=== PATIENT | female | born 1950 | race Caucasian/White ===

== ENCOUNTER 2017-10-22 07:36 | Observation (INO) ==
[2017-10-22 08:26] LABS: Hematocrit 36.5 % (37.0-47.0); Hemoglobin 11.7 gm/dL (12.5-16.0); Mean Cell Volume 97.6 fl (78-100); Mean Corpuscular Hemoglobin 31.3 pg (27-31); Mean Corpuscular Hgb Conc 32.1 g/dl (32-36); Mean Platelet Volume 9.3 fl (8-12.5); Neutrophil # 10.2 K/mm3 (1.3-6.0); Neutrophil % 83.1 % (42-75.0); Platelet Count 323 K/mm3 (150-450); Red Blood Count 3.74 M/mm3 (4.2-5.4); Red Cell Distribution Width 13.2 % (11.5-14.0); White Blood Count 12.3 K/mm3 (4.0-10.5)
[2017-10-22 08:29] LABS: Albumin * 3.7 gm/dl (3.4-5.0); Anion Gap 9.5 mmol/L (6.8-13.8); BUN/Creatinine Ratio 17.5 (9.0-21.6); Bilirubin, Total 0.6 mg/dL (0.0-1.1); Ca. Corrected For Albumin 9.5 mg/dL (8.4-10.2); Calcium * 9.6 mg/dL (7.9-10.9); Carbon Dioxide 35.7 mmol/L (24-32.6); Potassium 4.2 mmol/L (3.4-4.6)
[2017-10-22 08:53] LABS: Urine Appearance Clear (CLEAR); Urine Bacteria None Seen; Urine Bilirubin Negative (NEGATIVE); Urine Blood Negative /ul (NEGATIVE); Urine Color Yellow; Urine Ketone Negative (NEGATIVE); Urine Nitrite Negative (NEGATIVE); Urine Protein 15 mg/dL (NEGATIVE); Urine RBC TRACE /hpf (0-5); Urine Urobilinogen Normal (NORMAL); Urine WBC TRACE /hpf (0-5); Urine pH 8.5 pH (5.0-7.0)
[2017-10-22] MEDS ORDERED: DIATRIZOATE MEGLUMINE, SODIUM 30 ML BTL PO ONE (09:06)
[2017-10-22] MEDS ORDERED: ONDANSETRON HCL/PF 2 MG/ML VIAL IV ONE (09:06)
[2017-10-22] MEDS ORDERED: PANTOPRAZOLE SODIUM 40 MG in NORMAL SALINE 100 ML IV ONE (09:08)
[2017-10-22] MEDS ORDERED: ONDANSETRON HCL/PF 2 MG/ML VIAL ONE (09:13)
[2017-10-22] MEDS ORDERED: PANTOPRAZOLE SODIUM 40 MG/100 ML PIGGYBACK IV ONE (09:13)
[2017-10-22] MEDS ORDERED: MORPHINE SULFATE 2 MG/ML DISP.SYRIN ONE ×2 (09:29→10:37)
[2017-10-22] MEDS ORDERED: MORPHINE SULFATE 2 MG/ML DISP.SYRIN IV ONE ×2 (09:29→10:36)
[2017-10-22] MEDS ORDERED: DIATRIZOATE MEGLUMINE, SODIUM 30 ML BTL ONE (09:33)
[2017-10-22] MEDS ORDERED: NORMAL SALINE 1,000 ML IV ONE (14:58)
[2017-10-22] MEDS ORDERED: PIPERACILLIN SODIUM/TAZOBACTAM 3.375 GM in DEXTROSE 5 % IN WATER 100 ML IV ONE ×2 (15:18)
--- NOTE | 2017-10-22 15:21 | ERNOTE ---
Abdominal HPI - Narrative Date of Service: 10/22/17 - General Chief Complaint: Abdominal Pain Time Seen by Provider: 10/22/17 08:19 Source: patient Exam Limitations: no limitations - Immun/Allergies/Home Medications Immunizatons: IMMUNIZATION HX Immunizations Up to Date Yes History of Influenza Vaccine Yes Hx Pneumococcal Vaccination No Allergies/Adverse Reactions: Allergies No Known Allergies Allergy (Verified 10/22/17 07:53) Home Medications: HOME MEDICATIONS Carvedilol [Coreg] 3.125 mg PO BID #60 tablet 02/02/13 [Last Taken Unknown] Levalbuterol HCl [Xopenex] 1.25 mg IH QID #120 02/02/13 [Last Taken Unknown] Lisinopril 20 mg PO DAILY #30 tablet 02/02/13 [Last Taken Unknown] Arformoterol Tartrate [Brovana] 15 mcg IH BID 02/08/14 [Last Taken Unknown] Furosemide [Lasix] 40 mg PO DAILY 02/08/14 [Last Taken Unknown] Tiotropium [place] [Spiriva] 1 cap IH DAILY 04/21/17 [Last Taken Unknown] - History of Present Illness Narrative: Patient presents to the ED with upper abdominal pain since friday. Sharp and aching. More left sided and epigastric but will be on the right side at times. No low abdominal pain. No history of pains like this. Pain can be severe, waxing and waning, mild right now. no CP or acute SOB. Nausea with vomiting. No dysuria. Has not sen anyone else for this. No increased SOB, on home O2. Timing: constant, other - fluctuating intensity Quality: other - sharp Activities at Onset: none Modifying Factors - (Improves): Present: other - nothing Modifying Factors - (Worsens): Present: other - nothing Associated Symptoms: Present: nausea, vomiting. Absent: chest pain, diarrhea- mucous, fever/chills, syncope Prior Abdominal Problems: Absent: similar symptoms Prior Treatment: Absent: recently seen Review of Systems - Review of Systems Constitutional: Absent: fever Respiratory: Absent: stridor Cardiology: Absent: chest pain Gastrointestinal/Abdominal: Present: abdominal pain Genitourinary: Absent: dysuria Skin: Absent: rash Neurological: Absent: weakness All Other Systems: All systems neg except as marked Medical History (Last Updated 10/22/17 @ 07:51 by Anibal Arrington RN) CHF (congestive heart failure) COPD (chronic obstructive pulmonary disease) Hypertension Skin cancer Surgical History: Surgical History (Last Updated 10/22/17 @ 07:53 by Anibal Arrington RN) History of ear surgery Social History: Preferred Language Romanian Smoking Status Former smoker Abuse History No History of abuse Psych History No pertinent hx Alcohol Use none Drug Use none Physical Exam - Physical Exam General Appearance: Present: alert, no apparent distress Head Exam: Present: normal inspection, no evidence of injury Eye Exam: Normal inspection: bilateral, PERRL: bilateral Ears, Nose, Throat: Present: normal ENT inspection Neck: Present: normal inspection Respiratory: Present: no respiratory distress, no accessory muscle use, lungs clear Cardiovascular/Chest: Present: regular rate, rhythm, normal peripheral pulses Gastrointestinal/Abdominal: Present: nondistended, soft, no organomegaly, other - diffuse upper abdominal tenderness Back Exam: Absent: CVA tenderness (R), CVA tenderness (L) Extremity Exam: Present: normal range of motion Neurological Exam: Present: alert, no motor/sensory deficits Skin Exam: Present: normal color, warm/dry ED Progress - Results and Orders Patient's Lab Results:: I have reviewed the patient's lab results. - Vital Signs Patient's Vital Signs:: I have reviewed the patient's vital signs. Vital Signs: Vital Signs 10/22/17 07:37 10/22/17 08:44 10/22/17 09:24 Temperature 36.8 C Pulse Rate 82 88 79 Respiratory Rate 18 16 16 Blood Pressure 172/58 H 183/70 H 165/65 H O2 Sat by Pulse Oximetry 92 L 91 L 98 10/22/17 09:39 10/22/17 10:18 10/22/17 10:41 Temperature Pulse Rate 78 76 79 Respiratory Rate 15 18 18 Blood Pressure 161/61 H 162/99 H 165/64 H O2 Sat by Pulse Oximetry 98 97 100 10/22/17 11:31 10/22/17 11:46 10/22/17 13:30 Temperature Pulse Rate 77 74 86 Respiratory Rate 16 16 18 Blood Pressure 156/62 H 159/64 H 165/58 H O2 Sat by Pulse Oximetry 92 L 100 100 10/22/17 14:05 10/22/17 14:20 Temperature Pulse Rate 76 76 Respiratory Rate Blood Pressure 141/59 150/60 H O2 Sat by Pulse Oximetry 98 97 - EKG EKG: NSR EKG read: Interp. by me EKG Comments: NSR rate 76. Non-specific, no STEMI - X-Ray X-Ray #1 X-Ray: abdomen Interpretation: Interp. by me X-ray Comments: I reviewed official radiology report - CT/Ultrasound CT/Ultrasound Narrative: I reviewed official radiology reports for CT scan and US. - Progress/Reassessment Chief Complaint: Abdominal Pain Progress Note-Subjective: 10/22/17 15:20 patient given anti-emetics and narcotics. D/W Dr Souza who saw the patient in the ED in surgical consultation. 10/22/17 15:54 Patient will be taken to the OR here. Departure Clinical Impression: Abdominal pain, Cholecystitis - Departure Disposition: Still a patient Condition: Stable Referrals: Isael Vallejo DO [Primary Care Provider] -
--- NOTE | 2017-10-22 16:03 | ERNOTE ---
Abdominal HPI - Narrative Date of Service: 10/22/17 - General Chief Complaint: Abdominal Pain Time Seen by Provider: 10/22/17 08:19 Source: patient Exam Limitations: no limitations - Immun/Allergies/Home Medications Immunizatons: IMMUNIZATION HX Immunizations Up to Date Yes History of Influenza Vaccine Yes Hx Pneumococcal Vaccination No Allergies/Adverse Reactions: Allergies No Known Allergies Allergy (Verified 10/22/17 07:53) Home Medications: HOME MEDICATIONS Carvedilol [Coreg] 3.125 mg PO BID #60 tablet 02/02/13 [Last Taken Unknown] Levalbuterol HCl [Xopenex] 1.25 mg IH QID #120 02/02/13 [Last Taken Unknown] Lisinopril 20 mg PO DAILY #30 tablet 02/02/13 [Last Taken Unknown] Arformoterol Tartrate [Brovana] 15 mcg IH BID 02/08/14 [Last Taken Unknown] Furosemide [Lasix] 40 mg PO DAILY 02/08/14 [Last Taken Unknown] Tiotropium [place] [Spiriva] 1 cap IH DAILY 04/21/17 [Last Taken Unknown] - History of Present Illness Narrative: Alison is a very pleasant 67-year-old female who developed abdominal pain on Friday. She has a significant history of COPD, she is on 2 L of oxygen all the time. Recently her lungs have been doing well, and she denies any acute COPD exacerbation. She is able to walk from the parking lot into the grocery store, she can then walk around the grocery store, if she leans on the cart. She has not had anything to eat since Friday. She has not had abdominal pain like this before. Her bowels have been working normally. She has had some dry heaves, otherwise denies emesis. Complains of nausea when she does try to eat. She is uncertain where the pain is worse, except with palpation of the abdomen she describes it is definitely being worse in the right upper quadrant. Her son is with her at the bedside in the emergency room. She underwent a CT scan which showed possible acute cholecystitis. She then had an ultrasound which showed cholelithiasis demonstrating probable cholecystitis, there is a nonmobile stone within the neck of the gallbladder get a sonographic Rincon's, proximal common bile duct is 0.27 and the distal common bile duct is 0.45. There is pericholecystic fluid, there is a thickened wall. Timing: getting worse Quality: severe Modifying Factors - (Improves): Present: analgesics Modifying Factors - (Worsens): Present: eating Associated Symptoms: Present: nausea, loss of appetite. Absent: chest pain Prior Abdominal Problems: Present: none Review of Systems - Review of Systems Constitutional: Present: weakness EYE: Present: no symptoms reported ENT: Present: no symptoms reported Respiratory: Present: shortness of breath - chronic Cardiology: Absent: chest pain, palpitations Gastrointestinal/Abdominal: Present: nausea, abdominal pain, eating less, drinking less Skin: Present: no symptoms reported Neurological: Present: no symptoms reported Endocrine: Present: no symptoms reported Hematologic/Lymphatic: Present: no symptoms reported Psych: Present: no symptoms reported Medical History (Last Updated 10/22/17 @ 15:57 by Bekah Souza DO) Hx of tonsillectomy CHF (congestive heart failure) COPD (chronic obstructive pulmonary disease) Hypertension Skin cancer Surgical History: Surgical History (Last Updated 10/22/17 @ 15:57 by Bekah Souza DO) Status post breast lumpectomy History of ear surgery Family History: Family History (Last Updated 10/22/17 @ 15:57 by Bekah Souza DO) Other Lung cancer Social History: Preferred Language Malay Smoking Status Former smoker Abuse History No History of abuse Psych History No pertinent hx Alcohol Use none Drug Use none Physical Exam - Physical Exam General Appearance: Present: mild distress Head Exam: Present: normal inspection Neck: Present: normal inspection Respiratory: Present: no respiratory distress, normal breath sounds, no accessory muscle use, lungs clear Cardiovascular/Chest: Present: regular rate, rhythm, no murmur, normal peripheral pulses Gastrointestinal/Abdominal: Present: normal bowel sounds, soft, tenderness - right upper quadrant. Absent: Rincon sign Extremity Exam: Present: pedal edema - mild Neurological Exam: Present: alert, oriented, normal mood/affect Skin Exam: Present: normal color ED Progress - Results and Orders Patient's Lab Results:: I have reviewed the patient's lab results. - Vital Signs Patient's Vital Signs:: I have reviewed the patient's vital signs. Vital Signs: Vital Signs 10/22/17 08:44 10/22/17 09:24 10/22/17 09:39 Pulse Rate 88 79 78 Respiratory Rate 16 16 15 Blood Pressure 183/70 H 165/65 H 161/61 H O2 Sat by Pulse Oximetry 91 L 98 98 10/22/17 10:18 10/22/17 10:41 10/22/17 11:31 Pulse Rate 76 79 77 Respiratory Rate 18 18 16 Blood Pressure 162/99 H 165/64 H 156/62 H O2 Sat by Pulse Oximetry 97 100 92 L 10/22/17 11:46 10/22/17 13:30 10/22/17 14:05 Pulse Rate 74 86 76 Respiratory Rate 16 18 Blood Pressure 159/64 H 165/58 H 141/59 O2 Sat by Pulse Oximetry 100 100 98 10/22/17 14:20 10/22/17 14:45 10/22/17 15:15 Pulse Rate 76 76 75 Respiratory Rate Blood Pressure 150/60 H 163/68 H 156/69 H O2 Sat by Pulse Oximetry 97 99 99 - Progress/Reassessment Chief Complaint: Abdominal Pain Plan - Plan Plan: I personally reviewed the patient's ultrasound and CT scan images. With the nonmobile stone in the neck of the gallbladder, along with a thickened wall, pericholecystic fluid, and leukocytosis I am concerned for acute cholecystitis. She is tender in the right upper quadrant. I discussed the treatment options with the family including laparoscopic possible open cholecystectomy versus a cholecystostomy tube. I think in her case doing the cholecystectomy would be the better option, as she is currently breathing at her baseline, not having a COPD exacerbation. A cholecystostomy tube would prolong her course, and her lungs could be worse when we needed to do the cholecystectomy in the future. They also discussed the risk with her chronic oxygen therapy that she may need to remain on the ventilator for a period of time, the patient and her son understand this. We discussed the risks and benefits of cholecystectomy including the possible need for an open procedure, injury to the bowel, injury to the common bile duct, need for reoperation, and possible bile leak. They voiced understanding and would like to proceed. The patient will like to have this done as soon as possible so she can have something to drink. The patient will receive Zosyn prior to the procedure. I discussed the patient with her primary care provider Dr. Vallejo. He agrees that she is an appropriate surgical candidate to do at our hospital. We will plan to admit the patient to the hospital after the procedure. The patient will remain on the ventilator, she would be inpatient and go to the SCU. Hopefully, we'll be able to extubate and go to the floor, and she can be observation. The patient's LFTs are normal, there are no signs of choledocholithiasis. Thank you Dr. Vallejo for allowing me to participate in the care of your patient , please call for any questions. Departure Clinical Impression: Abdominal pain, Cholecystitis - Departure Disposition: Still a patient Condition: Stable Referrals: Isael Vallejo, [Primary Care Provider] - Assessment /Plan - Assessment/Plan Assessment: Acute cholecystitis Abdominal pain Leukocytosis Cholelithiasis COPD O2 dependent History of former tobacco abuse CHF Hypertension
[2017-10-22] MEDS ORDERED: NORMAL SALINE 1,000 ML IV PRN (17:34)
[2017-10-22] MEDS ORDERED: BUPIVACAINE HCL/EPINEPHRINE 50 ML VIAL IJ ONE (17:50)
[2017-10-22] MEDS ORDERED: BUPIVACAINE HCL/EPINEPHRINE 10 ML VIAL IJ ONE (18:03)
[2017-10-22] MEDS ORDERED: ONDANSETRON HCL/PF 2 MG/ML VIAL IV PRN (18:34)
--- NOTE | 2017-10-22 18:38 | ANES ---
Anesthesia Pre Procedure Eval Vitals/Labs: Last Vital Signs Temp 36.8 C 10/22/17 07:37 Pulse 75 10/22/17 15:15 Resp 18 10/22/17 13:30 BP 156/69 H 10/22/17 15:15 Pulse Ox 99 10/22/17 15:15 HOME MEDICATIONS Carvedilol [Coreg] 3.125 mg PO BID #60 tablet 02/02/13 [Last Taken Unknown] Levalbuterol HCl [Xopenex] 1.25 mg IH QID #120 02/02/13 [Last Taken Unknown] Lisinopril 20 mg PO DAILY #30 tablet 02/02/13 [Last Taken Unknown] Arformoterol Tartrate [Brovana] 15 mcg IH BID 02/08/14 [Last Taken Unknown] Furosemide [Lasix] 40 mg PO DAILY 02/08/14 [Last Taken Unknown] Tiotropium [place] [Spiriva] 1 cap IH DAILY 04/21/17 [Last Taken Unknown] Allergies/Adverse Reactions: Allergies Allergy/AdvReac Type Severity Reaction Status Date / Time No Known Allergies Allergy Verified 10/22/17 07:53 - Planned Procedure Planned Procedure: NOT FEELING WELL Medication List Reviewed:: Yes Allergies Verified: Yes Medical History (Last Reviewed 10/22/17 @ 18:37 by Darrell Sagastume CRNA) Hx of tonsillectomy CHF (congestive heart failure) COPD (chronic obstructive pulmonary disease) Hypertension Skin cancer Surgical History (Last Reviewed 10/22/17 @ 18:37 by Darrell Sagastume CRNA) Status post breast lumpectomy History of ear surgery Family History (Last Reviewed 10/22/17 @ 18:37 by Darrell Sagastume CRNA) Other Lung cancer - Family Anesthesia History Family History:: no untoward family reactions to anesthesia - Airway/Neck/Teeth Within Normal Limits:: Yes Denture Type: Full- Upper & Lower Neck Exam: normal inspection Mallampatti Score: 2 Thyromental (T-M) distance: > 6 cm Mandibulo Hyoid distance: > 3 cm - Respiratory Respiratory: decreased breath sounds, No rales, No wheezing Smoking Status: Current every day smoker Discussed smoking cessation including day of surgery: Yes Sleep Apnea currently treated: No Sleep Apnea by current assessment: No Discussed Risks/Treatment of DORIAN: No - Cardiovascular Patient History - Cardiac/Respiratory: CHF, COPD, Hypertension, Home O2 Use Tolerates Activity: Poor Heart Sounds: S1 & S2, Regular - Anesthesia Assessment and Plan ASA Class: III, E Anesthesia Type Plan: General ET Planned difficult intubation/equipment available: No
--- NOTE | 2017-10-22 18:39 | ANES ---
Post Anesthesia Discharge - Transfer of Care Transfer of Care handoff given to nurse: Yes - Discharge from PACU Discharge from PACU when meets criteria: Yes
[2017-10-22] MEDS ORDERED: HYDROmorphone HCL 1 MG/ML DISP.SYRIN IV PRN (18:41)
[2017-10-22] MEDS ORDERED: HYDROcodone/ACETAMINOPHEN 1 EACH TABLET PO PRN (18:42)
--- NOTE | 2017-10-22 18:51 | ANES ---
Post Anesthesia Assessment - Vital Signs Vitals: Last Vital Signs Temp 36.3 C 10/22/17 18:30 Pulse 86 10/22/17 18:45 Resp 16 10/22/17 18:45 BP 131/47 10/22/17 18:45 Pulse Ox 99 10/22/17 18:45 Airway Patency: Normal - Mental Status Level Of Consciousness: Awake - Pain Level Pain Score: 2 - N/V Assessment Nausea/Vomiting Presence: None Dehydration:: No
--- NOTE | 2017-10-22 19:01 | OR ---
Operative Report - Dictated Report Narrative: Date of Service: 10/22/17 Procedure: laparoscopic cholecystecomy Pre-procedure diagnosis: acute morro Post-procedure diagnosis:same Surgeon: Dr. Bekah Souza Data Collection Technician: Isreal Álvarez Anesthesia: Gen Indication for procedure: Ms. Purdy is a very pleasant 67-year-old female who has been having abdominal pain for the last 3 days. Her imaging is consistent with acute cholecystitis, she has leukocytosis, and right upper quadrant pain. Description of procedure: After appropriate informed consent was obtained patient was taken to the operating room placed in the supine position general anesthesia was achieved. A footboard was placed. The patient was prepped and draped in the usual sterile fashion. A 5 mm infraumbilical incision was made, hemostat was used to dissect down to the fascia. The Veress needle was inserted , I was not happy with the first insertion, I reinserted the Veress needle, a saline drop test was performed which was satisfactory. The 5 mm trocar was then placed. Camera was inserted, there was no evidence of a trocar injury. A 12 mm trocar was placed in the xiphoid region, a 5 mm port was placed in the right upper quadrant, a 5 mm port was placed in the right upper lateral quadrant. The gallbladder was quite edematous. Due to the thickened wall of the gallbladder, it was just difficult to grasp. The gallbladder was elevated over the liver bed, it continued to be difficult to mobilize due to the acute cholecystitis. A needle was inserted and the gallbladder was suctioned. This allowed for better mobilization of the gallbladder. There was a large stone at the neck of the gallbladder. The cystic duct was identified and dissected, it was seen to be directly entering the gallbladder. 3 clips are placed on the stay side, 1 on the gallbladder side. The cystic duct was then transected. The cystic artery was then dissected, 2 clips were placed on the stay side, 1 on the gallbladder side. This was then transected. The gallbladder continued to be mobilized from the liver. There was a small tubular structure entering the gallbladder, 1 clip was placed on the stay side and one on the gallbladder side, just in case this was a posterior cystic artery. The gallbladder was then removed from the liver bed using electrocautery. It was then placed in an Endo Catch bag and removed through the 12 mm port site. The abdomen was inspected, cautery was used on the liver bed until it was hemostatic. The area over the liver was irrigated until clear. The 12 mm port site was closed with an 0 Vicryl suture using the Carlos Nick device. The abdomen was desufflated, trochars were removed. Local was injected, the incisions were closed with inverted interrupted 4-0 Monocryl suture. Complications: none Specimens to pathology: gallbladder, and culture of gallbladder aspirate Thank you Dr. Vallejo for allowing me to participate in the care of your patient , please call for any questions.
[2017-10-22] MEDS: DEXTROSE 5%-0.5 NORMAL SALINE 1,000 ML IV PRN (20:58)
[2017-10-22] MEDS ORDERED: LEVALBUTEROL HCL 1.25 MG/3 ML AMPUL IH SCH (23:15)
[2017-10-22] MEDS: LEVALBUTEROL HCL 1.25 MG/3 ML AMPUL IH SCH (23:28)
[2017-10-23] MEDS: LEVALBUTEROL HCL 1.25 MG/3 ML AMPUL IH SCH ×3 (05:59→14:16)
[2017-10-23] MEDS ORDERED: BUPIVACAINE HCL 50 ML VIAL IJ PRN (06:00)
[2017-10-23] MEDS ORDERED: RINGER'S SOLUTION,LACTATED 1,000 ML IV PRN (06:00)
[2017-10-23] MEDS: DEXTROSE 5%-0.5 NORMAL SALINE 1,000 ML IV PRN (07:15)
[2017-10-23] MEDS ORDERED: HYDROcodone/ACETAMINOPHEN 1 EACH TABLET PO PRN ×2 (08:07→08:09)
[2017-10-23] MEDS ORDERED: HYDROmorphone HCL 1 MG/ML DISP.SYRIN IV PRN ×2 (08:10→08:13)
--- NOTE | 2017-10-23 11:07 | PN ---
Dictated Progress Note - Date and Time Seen: Date: 10/23/17 Time: 08:00 - Progress Note Narrative: Doing well this morning, denies pain. She describes it as a dull ache. No nausea or vomiting, she is eating breakfast. Vital Signs - Last Taken she had a small bowel movement overnight. She feels ready for discharge. Temp 36.8 C 10/23/17 05:00 Pulse 87 10/23/17 10:26 Resp 22 H 10/23/17 10:26 BP 129/80 10/23/17 05:00 Pulse Ox 99 10/23/17 10:16 Culture 10/22/17 19:00 Miscellaneous Culture - Preliminary Gallbladder No Growth NAD non labored respirations abd soft, appropriate TTP for post op Imp: POD#1 lap morro for acute morro COPD home O2 dependant Plan: dc home today no med changes follow up with me in 2 weeks, or sooner if any problems
--- NOTE | 2017-10-23 13:40 | DS ---
(1) Cholecystitis Problem: Resolved Description of Stay: Ms. Purdy is a very pleasant 67-year-old female who was into the emergency room yesterday for abdominal pain. This had been ongoing since Friday. It was worse in the right upper quadrant. Her imaging was consistent with cholecystitis. She also had leukocytosis, her physical and clinical exam also fit the picture of acute cholecystitis. She was taken to the operating room for a laparoscopic cholecystectomy. The operation showed acute cholecystitis. Patient was admitted to the floor for observation overnight. She did well postoperatively, she is on her 2 L of home O2. She is at her baseline. She has minimal pain, and has not required narcotic pain medicine. She is tolerating breakfast, and feels ready for discharge. Procedures Performed: see notes below List Procedures: Laparoscopic cholecystectomy Results and Findings: Pending Mircobiology Results 10/22/17 19:00 Gallbladder Miscellaneous Culture - Preliminary No Growth Lab Pending Results 10/22/17 08:15: WBC 12.3 H, RBC 3.74 L, Hgb 11.7 L, Hct 36.5 L, MCV 97.6, MCH 31.3 H, MCHC 32.1, RDW 13.2, Plt Count 323, MPV 9.3, Immature Gran % (Auto) 0.30 , Immature Gran # (Auto) 0.04 H, Neutrophils % 83.1 H, Lymphocytes % 11.3 L, Monocytes % 4.8, Eosinophils % 0.3, Basophils % 0.2, Nucleated RBC % 0.0, Neutrophils # 10.2 H, Lymphocytes # 1.40 L, Monocytes # 0.6, Eosinophils # 0.0, Absolute Basophils 0.0 10/22/17 08:15: Sodium 139, Plasma Sodium 139, Potassium 4.2, Chloride 98, Carbon Dioxide 35.7 H, Anion Gap 9.5, BUN 22, Creatinine 1.26, Est GFR (Non-Af Amer) 45 L, BUN/Creatinine Ratio 17.5, Random Glucose 127 H, Calcium 9.6, Calcium Adj for Albumin 9.5, Total Bilirubin 0.6, AST 16, ALT 20, Alkaline Phosphatase 72, Total Protein 8.0, Albumin 3.7, Amylase 53, Lipase 98 10/22/17 08:15: Troponin I Less than 0.017 10/22/17 08:32: Urine Color Yellow, Urine Appearance Clear, Urine pH 8.5, Ur Specific [place] 1.010, Urine Protein 15 H, Urine Glucose (UA) Negative, Urine Ketones Negative, Urine Blood Negative, Urine Nitrate Negative, Urine Bilirubin Negative, Prot Sulfosalicylic Acd Negative, Urine Urobilinogen Normal, Ur Leukocyte Esterase Negative, Urine RBC Trace, Urine WBC Trace H, Ur Epithelial Cells 5-10 H, Urine Bacteria None seen, Urine Culture Comments No culture indicated 10/22/17 19:00: Pathology Specimen Spec to path Discharge Location: Home Disposition: Home self-care Condition: Stable Discharge Activity: Activity as tolerated Discharge Diet: General/regular food Referrals: Isael Vallejo DO [Primary Care Provider] - Additional Patient Instructions (free text): Patient should follow-up with Dr. Bekah Souza in 2 weeks in the surgery clinic, she should call sooner if any problems. Complete Home Medications List: Complete Home Medication List: Carvedilol [Coreg] 3.125 mg PO BID #60 tablet 02/02/13 Levalbuterol HCl [Xopenex] 1.25 mg IH QID #120 02/02/13 Lisinopril 20 mg PO DAILY #30 tablet 02/02/13 Arformoterol Tartrate [Brovana] 15 mcg IH BID 02/08/14 Furosemide [Lasix] 40 mg PO DAILY 02/08/14 Tiotropium [place] [Spiriva] 1 cap IH DAILY 04/21/17 Levalbuterol HCl [Xopenex] 1.25 mg IH QIDRT ampul 10/23/17
[2017-10-23 15:06] VITALS: BP 135/52
== END 2017-10-23 15:56 | disposition home or self-care (01) ==
LOC: ER 07:36 → SUR 15:45 → MS 16:30 → INTOOBSV 20:05 → MS 20:05
PROVIDERS: ADMIT Surgery; ATTEND Surgery
DX: I10 Essential (primary) hypertension; K80.12 Calculus of gallbladder with acute and chronic cholecystitis without obstruction; Z68.28 Body mass index [BMI] 28.0-28.9, adult; Z87.891 Personal history of nicotine dependence; I50.9 Heart failure, unspecified; J44.9 Chronic obstructive pulmonary disease, unspecified
CPT/HCPCS: 36415; 74019; 74020; 74177; 76705; 80053; 81001; 82150; 83690; 84484; 85025; 87070; 88304; 93005; 94640; 94664; 96361; 96374; 96375; 96376; 99285; G0378; J2405

== ENCOUNTER 2020-07-06 08:37 | Inpatient (IN) ==
[2020-07-06] MEDS ORDERED: METHYLPREDNISOLONE SOD SUCC/PF 125 MG/2 ML VIAL IV ONE (08:43)
[2020-07-06] MEDS ORDERED: ALBUTEROL SULFATE 2.5 MG/0.5 ML VIAL.NEB IH ONE ×2 (08:43→09:40)
--- NOTE | 2020-07-06 08:52 | ERNOTE ---
Dyspnea - Date Date of Service: 07/06/20 - General Presenting Symptoms: shortness of breath, other - cough Time Seen by Provider: 07/06/20 08:39 Source: patient Exam Limitations: clinical condition, other - patient complaining about blood pressure cuff and not specifically answering many questions - Immun/Allergies/Home Medications Immunizations: IMMUNIZATION HX Immunizations Up to Date Yes History of Influenza Vaccine Yes Hx Pneumococcal Vaccination No Allergies/Adverse Reactions: Allergies No Known Allergies Allergy (Verified 07/04/20 16:30) Home Medications: HOME MEDICATIONS arformoterol 15 mcg/2 mL solution for nebulization 15 mcg IH BID 90 Days #360 ml 05/16/20 [Last Taken Unknown] carvedilol 3.125 mg tablet 3.125 mg PO BID #180 tab 05/16/20 [Last Taken Unknown] furosemide 40 mg tablet 40 mg PO DAILY #90 tab 05/16/20 [Last Taken Unknown] ipratropium bromide 0.02 % solution for inhalation 2.5 ml IH Q6H #150 ml 05/16/20 [Last Taken Unknown] levalbuterol HCl 1.25 mg/0.5 mL solution for nebulization 1.25 mg IH QID #360 ea 05/16/20 [Last Taken Unknown] lisinopril 20 mg tablet 20 mg PO DAILY #90 tab 05/16/20 [Last Taken Unknown] roflumilast 500 mcg tablet 500 mcg PO DAILY #90 tab 05/16/20 [Last Taken Unknown] folic acid 1 mg tablet 1 mg PO DAILY #90 tab 05/26/20 [Last Taken Unknown] mecobalamin (vitamin B12) 1,000 mcg disintegrating tablet,sublingual 1,000 mcg SL DAILY #90 tab 05/26/20 [Last Taken Unknown] - History of Present Illness Narrative: Patient presents to the ED for cough and SOB. Green sputum. This has been going on "for a while" but she relates worse since Friday. SOB with green sputum and cough. Denies CP. No new leg swelling. Unknown if feverish. Saw PCP for this. Today worse and EMS called. Duoneb given en route. On home oxygen. Severity: moderate Treatment [employer]: paramedics Initiating event: Reports: upper resp illness Frequency of episodes: Reports: occassional episodes Modifying Factors - (Improves): Reports: nothing Modifying Factors (Worsens): Reports: activity Associated Symptoms-Dyspnea: Reports: cough, wheezing. Denies: chest pain/discomfort, leg/calf pain, ankle/leg swelling Prior Treatment: Reports: recently seen, treated by physician Review of Systems - Review of Systems Constitutional: Absent: fever ENT: Absent: sore throat Respiratory: Present: shortness of breath, cough Cardiology: Absent: chest pain Gastrointestinal/Abdominal: Absent: abdominal pain Neurological: Absent: weakness All Other Systems: All systems neg except as marked Medical History (Last Reviewed 07/06/20 @ 08:50 by Darrell Palacios MD) CHF (congestive heart failure) COPD (chronic obstructive pulmonary disease) Hypertension Skin cancer removed Surgical History: Surgical History (Last Reviewed 07/06/20 @ 08:50 by Darrell Palacios MD) History of cataract surgery Onset Date: ~2014 bilateral History of colonoscopy Onset Date: ~07/01/07 07/01/07 Peasley-polyp, diverticulosis. History of ear surgery Onset Date: Unknown History of laparoscopic cholecystectomy Onset Date: ~10/22/17 [facility]by Hx of tonsillectomy Onset Date: Unknown Status post breast lumpectomy Onset Date: Unknown Family History: Family History (Last Reviewed 07/06/20 @ 08:50 by Darrell Palacios MD) Mother COPD (chronic obstructive pulmonary disease) Father Cancer Other Lung cancer Social History: (Last Reviewed 07/06/20 @ 08:50 by Darrell Palacios MD) Social History: Marital status: / household members: none number of children: 2 current occupational status: other current occupation: homemaker Service: No Tobacco: Smoking Status: Current every day smoker Alcohol: alcohol intake: never Substance Use: substance use type: does not use Dietary Habits: caffeine: Yes Personal Safety: victim of physical abuse: No victim of emotional abuse: No Physical Exam - Physical Exam General Appearance: Present: alert, other - coughing Head Exam: Present: normal inspection, no evidence of injury Eye Exam: Normal inspection: bilateral, PERRL: bilateral Ears, Nose, Throat: Present: normal ENT inspection Neck: Present: normal inspection Respiratory: Present: other - scattered wheezes I and E and rales Cardiovascular/Chest: Present: regular rate, rhythm, normal peripheral pulses Gastrointestinal/Abdominal: Present: normal bowel sounds, nontender, soft Back Exam: Absent: CVA tenderness (R), CVA tenderness (L) Extremity Exam: Present: non-tender Neurological Exam: Present: alert, no motor/sensory deficits Skin Exam: Present: normal color, warm/dry Progress - Results and Orders Patient's Lab Results:: I have reviewed the patient's lab results. - Vital Signs Patient's Vital Signs:: I have reviewed the patient's vital signs. - EKG EKG #1 EKG: NSR EKG read: Interp. by me EKG Comments: NSR rate 92. Non-specific, no STEMI, no ischemic changes - X-Ray X-Ray #1 X-Ray: chest Interpretation: Interp. by me X-ray Comments: I personally reviewed CXR images as well as official radiology report. - Progress/Reassessment Progress Note-Subjective: 07/06/20 10:22 Patient started on BiPap. She is agreeable to the BiPap. CO2 Improving. IV ABx given. Dr Vallejo out of the office. D/W Dr Leggett who will admit the patient. D/W Fam[facility]. Patient remains on BiPap. 07/06/20 10:50 Departure Clinical Impression: Acute hypercapnic respiratory failure, Complicated bronchitis, Acute exacerbation of chronic obstructive pulmonary disease (COPD) - Departure Disposition: Still a patient Condition: Fair Referrals: Isael Vallejo DO [Primary Care Provider] -
[2020-07-06 09:07] LABS: Hematocrit 33.5 % (37.0-47.0); Hemoglobin 9.8 gm/dL (12.5-16.0); Mean Corpuscular Hgb Conc 29.3 g/dl (32-36); Mean Platelet Volume 9.2 fl (8-12.5); Platelet Count 392 K/mm3 (150-450); Red Blood Count 3.16 M/mm3 (4.2-5.4); Red Cell Distribution Width 12.4 % (11.5-14.0); White Blood Count 18.3 K/mm3 (4.0-10.5)
[2020-07-06 09:09] LABS: Total Cells Counted 100
[2020-07-06 09:20] LABS: ALT 19 U/L (19-67); AST 15 U/L (0-48); Albumin * 3.3 gm/dl (3.4-5.0); Alkaline Phosphatase * 83 U/L (50-170); Anion Gap 3.1 mmol/L (6.8-13.8); BNP * 974 pg/mL (5-325); BUN/Creatinine Ratio 28.2 (9.0-21.6); Bilirubin, Total 0.3 mg/dL (0.0-1.1); Blood Urea Nitrogen 33 mg/dL (3-23); Ca. Corrected For Albumin 10.1 mg/dL (8.4-10.2); Calcium * 9.9 mg/dL (7.9-10.9); Carbon Dioxide 42.6 mmol/L (24-32.6); Chloride 101 mmol/L (97-106); Glucose * 129 mg/dL (70-110); Potassium 4.7 mmol/L (3.4-4.6); Sodium 142 mmol/L (132-142); Total Protein 8.4 gm/dL (6.2-8.2); Troponin I Less than 0.017 ng/mL (0.00-0.10)
[2020-07-06 09:47] LABS: Urine Bilirubin Negative (NEGATIVE); Urine Blood Negative /ul (NEGATIVE); Urine Ketone Negative (NEGATIVE); Urine Nitrite Negative (NEGATIVE); Urine Protein 15 mg/dL (NEGATIVE); Urine Specific Gravity 1.025 SP.GR. (1.005-1.010); Urine Urobilinogen Normal (NORMAL); Urine pH 5.5 pH (5.0-7.0)
[2020-07-06 09:55] LABS: Urine Appearance Clear (CLEAR); Urine Color Yellow
[2020-07-06 09:56] LABS: Urine Bacteria TRACE; Urine Hyaline Cast 0-5 /LPF; Urine RBC 0-5 /hpf (0-5); Urine WBC 0-5 /hpf (0-5)
[2020-07-06 10:00] LABS: Lymphocyte 2 % (20-51); Monocyte 3 % (0-9); Neutrophil 95 % (42-75); Neutrophil # 17.4 K/mm3 (1.3-6.0)
[2020-07-06 10:02] LABS: Basophilic Stippling Trace
[2020-07-06 10:03] LABS: Macrocytosis 1+; Platelet Estimate Normal (NORMAL)
[2020-07-06] MEDS ORDERED: LEVOFLOXACIN IN DEXTROSE 5 % 500 MG/100 ML BAG IV ONE (10:12)
--- NOTE | 2020-07-06 18:22 | HP ---
Chief Complaint - Chief Complaint Date of Service: 07/06/20 Time of Service: 18:21 Chief Complaint: sob, cough History of Present Illness: 69-year-old female with history of COPD, CHF, hypertension presented to the ER yesterday after roughly 1 week of worsening shortness of breath, cough, sputum production. Patient was seen in the walk-in clinic few days ago and was negative for Covid and influenza. She was sent home on Mucinex. Shortness of breath and cough and sputum production continue to worsen until she was fairly distressed when she presented to the ER via ambulance. Initial work-up showed her to have a white count of 18.3 with a left shift at 95. She is also mildly anemic with a hemoglobin 9.8 and hematocrit 33.5. Initial blood gas was concerning for an elevated PCO2 at 97.0 with a ABG of 7.28. Her bicarb is elevated at 44.6 which is likely due to compensation for her elevated CO2. Her CHEM panel showed her to have mildly elevated potassium of 4.7, kidney function was at baseline. Mildly elevated BNP at 974, is the lowest has been since we have any on record. Urine is negative for infection and her Covid test again was negative. Her chest x-ray showed mildly hyperinflated lungs which were granulomatous calcified in some areas, also some underlying emphysema. Patient states she did not take her medicine as directed. She is oxygen dependent at home, using 2 L. She is admitted to the floor for COPD exacerbation after being started on steroids and Levaquin. She also was started on BiPAP at 15 and 5 and her CO2 had improved down to 92.5. On the floor she was wearing the BiPAP and fairly somnolent. She is hard of hearing and hard to understand. Her son is here to help with a history. She has significant smoking history but is unsure of how long or how much she actually smoked. She has not smoked for last 7 to 8 years according to him. Her vital signs are stable in the ER and she is tolerating BiPAP well on the floor. She has been on BiPAP for most the day and will stop it at this time and allowed to rest and eat some and drink some. Likely restart in the morning depending on what her blood gases look like. VBG's will be ordered Medical History (Last Reviewed 07/06/20 @ 11:50 by Kvng Anne RN) CHF (congestive heart failure) COPD (chronic obstructive pulmonary disease) Hypertension Skin cancer removed Surgical History: Surgical History (Last Reviewed 07/06/20 @ 08:50 by Darrell Palacios MD) History of cataract surgery Onset Date: ~2014 bilateral History of colonoscopy Onset Date: ~07/01/07 07/01/07 Peasley-polyp, diverticulosis. History of ear surgery Onset Date: Unknown History of laparoscopic cholecystectomy Onset Date: ~10/22/17 Libby Hx of tonsillectomy Onset Date: Unknown Status post breast lumpectomy Onset Date: Unknown Family History: Family History (Last Reviewed 07/06/20 @ 11:50 by Kvng Anne RN) Mother COPD (chronic obstructive pulmonary disease) Father Cancer Other Lung cancer Social History: (Last Updated 07/06/20 @ 11:50 by Kvng Anne RN) Social History: Marital status: / household members: none number of children: 2 current occupational status: other current occupation: homemaker Service: No Tobacco: Smoking Status: Former smoker how long ago did patient quit smokin-9 years Alcohol: alcohol intake: never Substance Use: substance use type: does not use Dietary Habits: caffeine: Yes Personal Safety: victim of physical abuse: No victim of emotional abuse: No Review Of Systems (GEN) - Review of Systems Generalized/Overall Review: Present: Weakness, Chills. Absent: Fever EENTM: Present: No Symptoms Reported Respiratory: Present: Cough, Shortness of Breath, Wheezing Cardiac: Present: No Symptoms Reported Abdominal: Present: No Symptoms Reported Genitourinary: Present: No Symptoms Reported Musculoskeletal: Present: No Symptoms Reported Neurological: Present: No Symptoms Reported Skin: Present: No Symptoms Reported Endocrine: Present: No Symptoms Reported Immunizations: IMMUNIZATION HX Immunizations Up to Date Yes History of Influenza Vaccine No Hx Pneumococcal Vaccination No Allergies/Adverse Reactions: Allergies Allergy/AdvReac Type Severity Reaction Status Date / Time No Known Allergies Allergy Verified 07/04/20 16:30 Home Medications: HOME MEDICATIONS arformoterol 15 mcg/2 mL solution for nebulization 15 mcg IH BID 90 Days #360 ml 05/16/20 [Last Taken Unknown] carvedilol 3.125 mg tablet 3.125 mg PO BID #180 tab 05/16/20 [Last Taken Unknown] furosemide 40 mg tablet 40 mg PO DAILY #90 tab 05/16/20 [Last Taken Unknown] ipratropium bromide 0.02 % solution for inhalation 2.5 ml IH Q6H #150 ml 05/16/20 [Last Taken Unknown] levalbuterol HCl 1.25 mg/0.5 mL solution for nebulization 1.25 mg IH QID #360 ea 05/16/20 [Last Taken Unknown] lisinopril 20 mg tablet 20 mg PO DAILY #90 tab 05/16/20 [Last Taken Unknown] roflumilast 500 mcg tablet 500 mcg PO DAILY #90 tab 05/16/20 [Last Taken Unknown] folic acid 1 mg tablet 1 mg PO DAILY #90 tab 05/26/20 [Last Taken Unknown] mecobalamin (vitamin B12) 1,000 mcg disintegrating tablet,sublingual 1,000 mcg SL DAILY #90 tab 05/26/20 [Last Taken Unknown] Exam - Exam Vital Signs: Vital Signs - Last Taken Temp 36.1 C 07/06/20 14:00 Pulse 100 07/06/20 17:18 Resp 18 07/06/20 15:19 BP 153/88 H 07/06/20 14:00 Pulse Ox 97 07/06/20 15:19 Constitutional: Present: Alert, Oriented x3, Cooperative, Elderly ENT Exam: Present: hard of hearing, other - BiPAP in place Eye Exam: bilateral eye: normal inspection, EOMI Neck: Present: non-tender, supple Respiratory: Present: decreased breath sounds, rhonchi - Bilateral bases, wheezing - Diffusely throughout. Absent: no accessory muscle use, respiratory distress Cardiovascular/Chest: Present: regular rate, rhythm, no murmur Peripheral Pulses: dorsalis-pedis (R): 2+, dorsalis-pedis (L): 2+ Abdomen: Present: soft, nontender, nondistended Skin Exam: Present: normal color, warm/dry Neurologic: Present: alert, normal mood/affect, oriented x 3 Appearance: Present: appropriate insight, disheveled. Absent: impaired recent memory Eye contact: Present: cooperative, good eye contact, normal speech - Difficult to understand, poor dentition Thoughts: Present: normal thought pattern, normal mood /affect Diagnostic Studies: Abnormal Lab Results 07/06/20 07/06/20 07/06/20 Range/Units 08:56 08:56 09:05 WBC 18.3 H (4.0-10.5) K/mm3 RBC 3.16 L (4.2-5.4) M/mm3 Hgb 9.8 L (12.5-16.0) gm/dL Hct 33.5 L (37.0-47.0) % MCV 106.0 H (78-100) fl MCHC 29.3 L (32-36) g/dl Neutrophils % (Manual) 95 H (42-75) % Lymphocytes % (Manual) 2 L (20-51) % Neutrophils # (Manual) 17.4 H (1.3-6.0) K/mm3 Lymphocytes # (Manual) 0.4 L (1.5-3.5) k/mm3 pCO2 97.0 H* (32.0-45.0) mmHg pO2 166.1 H (83.0-108.0) mmHg HCO3 44.6 H (21.0-28.0) mmol/L Total CO2 47.5 H (19.0-24.0) mmol/L Base Excess 14.7 H (-2.0-3.0) mmol/L ABG pH 7.28 L (7.35-7.45) ABG O2 Sat (Measured) 98.8 H (94.0-98.0) % Potassium 4.7 H (3.4-4.6) mmol/L Carbon Dioxide 42.6 H (24-32.6) mmol/L Anion Gap 3.1 L (6.8-13.8) mmol/L BUN 33 H (3-23) mg/dL Est GFR (Non-Af Amer) 49 L (60-130) mL/min BUN/Creatinine Ratio 28.2 H (9.0-21.6) Random Glucose 129 H (70-110) mg/dL B-Natriuretic Peptide 974 H (5-325) pg/mL Total Protein 8.4 H (6.2-8.2) gm/dL Albumin 3.3 L (3.4-5.0) gm/dl Urine Protein (NEGATIVE) mg/dL Hyaline Casts (NONE) /LPF 07/06/20 07/06/20 Range/Units 09:25 10:22 WBC (4.0-10.5) K/mm3 RBC (4.2-5.4) M/mm3 Hgb (12.5-16.0) gm/dL Hct (37.0-47.0) % MCV (78-100) fl MCHC (32-36) g/dl Neutrophils % (Manual) (42-75) % Lymphocytes % (Manual) (20-51) % Neutrophils # (Manual) (1.3-6.0) K/mm3 Lymphocytes # (Manual) (1.5-3.5) k/mm3 pCO2 72.5 H* (32.0-45.0) mmHg pO2 73.3 L (83.0-108.0) mmHg HCO3 40.5 H (21.0-28.0) mmol/L Total CO2 42.7 H (19.0-24.0) mmol/L Base Excess 12.8 H (-2.0-3.0) mmol/L ABG pH (7.35-7.45) ABG O2 Sat (Measured) 93.6 L (94.0-98.0) % Potassium (3.4-4.6) mmol/L Carbon Dioxide (24-32.6) mmol/L Anion Gap (6.8-13.8) mmol/L BUN (3-23) mg/dL Est GFR (Non-Af Amer) (60-130) mL/min BUN/Creatinine Ratio (9.0-21.6) Random Glucose (70-110) mg/dL B-Natriuretic Peptide (5-325) pg/mL Total Protein (6.2-8.2) gm/dL Albumin (3.4-5.0) gm/dl Urine Protein 15 H (NEGATIVE) mg/dL Hyaline Casts 0-5 H (NONE) /LPF Laboratory Results WBC 18.3 K/mm3 (4.0-10.5) H 07/06/20 08:56 RBC 3.16 M/mm3 (4.2-5.4) L 07/06/20 08:56 Hgb 9.8 gm/dL (12.5-16.0) L 07/06/20 08:56 Hct 33.5 % (37.0-47.0) L 07/06/20 08:56 MCV 106.0 fl (78-100) H 07/06/20 08:56 MCH 31.0 pg (27-31) 07/06/20 08:56 MCHC 29.3 g/dl (32-36) L 07/06/20 08:56 RDW 12.4 % (11.5-14.0) 07/06/20 08:56 Plt Count 392 K/mm3 (150-450) 07/06/20 08:56 MPV 9.2 fl (8-12.5) 07/06/20 08:56 Neutrophils % (Manual) 95 % (42-75) H 07/06/20 08:56 Lymphocytes % (Manual) 2 % (20-51) L 07/06/20 08:56 Monocytes % (Manual) 3 % (0-9) 07/06/20 08:56 Neutrophils # (Manual) 17.4 K/mm3 (1.3-6.0) H 07/06/20 08:56 Lymphocytes # (Manual) 0.4 k/mm3 (1.5-3.5) L 07/06/20 08:56 Monocytes # (Manual) 0.5 k/mm3 (0.0-1.0) 07/06/20 08:56 Platelet Estimate Normal (NORMAL) 07/06/20 08:56 Basophilic Stippling Trace 07/06/20 08:56 Macrocytosis 1+ 07/06/20 08:56 pCO2 72.5 mmHg (32.0-45.0) H* 07/06/20 10:22 pO2 73.3 mmHg (83.0-108.0) L 07/06/20 10:22 HCO3 40.5 mmol/L (21.0-28.0) H 07/06/20 10:22 Total CO2 42.7 mmol/L (19.0-24.0) H 07/06/20 10:22 Base Excess 12.8 mmol/L (-2.0-3.0) H 07/06/20 10:22 ABG pH 7.37 (7.35-7.45) 07/06/20 10:22 ABG O2 Sat (Measured) 93.6 % (94.0-98.0) L 07/06/20 10:22 Sodium 142 mmol/L (132-142) 07/06/20 08:56 Plasma Sodium 142 mmol/L (130-142) 07/06/20 08:56 Potassium 4.7 mmol/L (3.4-4.6) H 07/06/20 08:56 Chloride 101 mmol/L (97-106) 07/06/20 08:56 Carbon Dioxide 42.6 mmol/L (24-32.6) H 07/06/20 08:56 Anion Gap 3.1 mmol/L (6.8-13.8) L 07/06/20 08:56 BUN 33 mg/dL (3-23) H 07/06/20 08:56 Creatinine 1.17 mg/dL (0.4-1.4) 07/06/20 08:56 Est GFR (Non-Af Amer) 49 mL/min (60-130) L 07/06/20 08:56 BUN/Creatinine Ratio 28.2 (9.0-21.6) H 07/06/20 08:56 Random Glucose 129 mg/dL (70-110) H 07/06/20 08:56 Calcium 9.9 mg/dL (7.9-10.9) 07/06/20 08:56 Calcium Adj for Albumin 10.1 mg/dL (8.4-10.2) 07/06/20 08:56 Total Bilirubin 0.3 mg/dL (0.0-1.1) 07/06/20 08:56 AST 15 U/L (0-48) 07/06/20 08:56 ALT 19 U/L (19-67) 07/06/20 08:56 Alkaline Phosphatase 83 U/L (50-170) 07/06/20 08:56 Troponin I Less than 0.017 ng/mL (0.00-0.10) 07/06/20 08:56 B-Natriuretic Peptide 974 pg/mL (5-325) H 07/06/20 08:56 Total Protein 8.4 gm/dL (6.2-8.2) H 07/06/20 08:56 Albumin 3.3 gm/dl (3.4-5.0) L 07/06/20 08:56 Urine Color Yellow 07/06/20 09:25 Urine Appearance Clear (CLEAR) 07/06/20 09:25 Urine pH 5.5 pH (5.0-7.0) 07/06/20 09:25 Ur Specific [place] 1.025 SP.GR. (1.005-1.010) 07/06/20 09:25 Urine Protein 15 mg/dL (NEGATIVE) H 07/06/20 09:25 Urine Glucose (UA) Negative mg/dL (NEGATIVE) 07/06/20 09:25 Urine Ketones Negative mg/dL (NEGATIVE) 07/06/20 09:25 Urine Blood Negative /ul (NEGATIVE) 07/06/20 09:25 Urine Nitrate Negative (NEGATIVE) 07/06/20:25 Urine Bilirubin Negative mg/dl (NEGATIVE) 07/06/20 09:25 Urine Urobilinogen Normal EU/dl (NORMAL) 07/06/20 09:25 Ur Leukocyte Esterase Negative /ul (NEGATIVE) 07/06/20:25 Urine RBC 0-5 /hpf (0-5) 07/06/20:25 Urine WBC 0-5 /hpf (0-5) 07/06/20 09:25 Ur Epithelial Cells 0-5 /hpf (0-5) 07/06/20 09:25 Urine Bacteria Trace (NONE) 07/06/20:25 Hyaline Casts 0-5 /LPF (NONE) H 07/06/20 09:25 Urine Culture Comments No culture indicated 07/06/20 09:25 SARS-CoV-2 (PCR) Not detected (NotDetected) 07/06/20 09:28 Assessment/Plan - Narrative Narrative: 69-year-old female admitted for acute hypercapnic respiratory failure secondary to exacerbation of her chronic COPD. Patient on BiPAP, blood gases improving. She was started on Levaquin which we will continue. Solu-Medrol dosage changed to 60 mg 3 times daily. We will stop BiPAP for the time being and put her back on nasal cannula, monitor satting between 91 to 94%. Repeat blood gases in the morning, will restart BiPAP if needed. Does not appear to be fluid overloaded. We will continue her Lasix. Will monitor kidney function with antibiotics. Repeat CBC in the morning. Heart healthy diet ordered. SCDs to be worn while in bed. Blood pressure has been elevated, will adjust medications after she gets her morning dose if needed. Patient also appears to be fairly sedentary and will likely need evaluation by physical therapy as she does not want to get that. We will also order this. Nurse to call with questions or concerns. 1 hour critical care time spent with patient with reviewing her history, physical exam, orders placed, and note dictated. - Assessment/Plan (1) Acute hypercapnic respiratory failure Problem: Acute (2) Acute exacerbation of chronic obstructive pulmonary disease (COPD) Problem: Acute (3) Leukocytosis Problem: Acute (4) CHF Problem: Active (5) Hypertension Problem: Acute
[2020-07-06 18:49] LABS: Venous Blood Gas HCO3 37.2 mmol/L (22.0-29.0); Venous Blood Gas pH 7.41 (7.32-7.43)
[2020-07-06] MEDS: CARVEDILOL 3.125 MG TABLET PO SCH (20:38)
[2020-07-06] MEDS ORDERED: LEVALBUTEROL HCL 1.25 MG/3 ML AMPUL IH SCH (21:00)
[2020-07-06] MEDS: METHYLPREDNISOLONE SOD SUCC/PF 40 MG/ML VIAL IV SCH (21:36)
[2020-07-07] MEDS: IPRATROPIUM BROMIDE 0.5 MG/2.5 ML VIAL.NEB IH SCH ×4 (00:56→18:00)
[2020-07-07 04:24] LABS: Venous Blood Gas HCO3 38.6 mmol/L (22.0-29.0); Venous Blood Gas pH 7.38 (7.32-7.43)
[2020-07-07] MEDS: METHYLPREDNISOLONE SOD SUCC/PF 40 MG/ML VIAL IV SCH (05:20)
[2020-07-07] MEDS: LEVALBUTEROL HCL 1.25 MG/3 ML AMPUL IH SCH ×4 (06:00→17:59)
[2020-07-07] MEDS: FORMOTEROL FUMARATE 20 MCG/2 ML VIAL IH SCH ×2 (06:07→18:00)
[2020-07-07] MEDS: CARVEDILOL 3.125 MG TABLET PO SCH ×2 (08:38→20:32)
[2020-07-07] MEDS: ROFLUMILAST 250 MCG TABLET PO SCH (08:39)
[2020-07-07] MEDS: FOLIC ACID 1 MG TABLET PO SCH (08:39)
[2020-07-07] MEDS: FUROSEMIDE 40 MG TABLET PO SCH (08:39)
[2020-07-07] MEDS ORDERED: ROFLUMILAST 500 MCG TABLET PO SCH (09:00)
[2020-07-07] MEDS ORDERED: LISINOPRIL 20 MG TABLET PO SCH (09:00)
[2020-07-07] MEDS: LEVOFLOXACIN 500 MG TABLET PO SCH (10:04)
[2020-07-07] MEDS ORDERED: hydrALAZINE HCL 20 MG/ML VIAL IV PRN (10:14)
[2020-07-07] MEDS ORDERED: LISINOPRIL 20 MG TABLET PO ONE (10:30)
[2020-07-07 10:46] LABS: Hematocrit 29.5 % (37.0-47.0); Mean Cell Volume 101.4 fl (78-100); Mean Corpuscular Hemoglobin 30.9 pg (27-31); Mean Corpuscular Hgb Conc 30.5 g/dl (32-36); Mean Platelet Volume 8.9 fl (8-12.5); Neutrophil # 12.9 K/mm3 (1.3-6.0); Neutrophil % 92.6 % (42-75.0); Platelet Count 326 K/mm3 (150-450); Red Blood Count 2.91 M/mm3 (4.2-5.4); Red Cell Distribution Width 12.4 % (11.5-14.0); White Blood Count 13.9 K/mm3 (4.0-10.5)
[2020-07-07 10:57] LABS: Anion Gap 5.2 mmol/L (6.8-13.8); BUN/Creatinine Ratio 33.1 (9.0-21.6); Calcium * 9.9 mg/dL (7.9-10.9); Carbon Dioxide 40.1 mmol/L (24-32.6); Estimated Creat Clear 28.8; Potassium 4.3 mmol/L (3.4-4.6)
[2020-07-07 15:00] LABS: Venous Blood Gas HCO3 41.4 mmol/L (22.0-29.0); Venous Blood Gas pH 7.43 (7.32-7.43)
[2020-07-07] MEDS: METHYLPREDNISOLONE SOD SUCC/PF 125 MG/2 ML VIAL IV SCH ×2 (15:05→21:51)
--- NOTE | 2020-07-07 18:27 | PN ---
Subjective - Date and Time Seen Date: 07/07/20 Time: 08:55 Subjective Narrative: Patient is resting comfortably in her bed at this time. Much improved compared to yesterday. She is much more conversant and easier to understand. Patient is back on O2 via nasal cannula. We will repeat a blood gas later today to make sure her CO2 is not climbing back up, if so eventually go back on BiPAP. She is on antibiotics and steroids for COPD exacerbation and doing well with them. She does endorse cough and shortness of breath and desats with movement but overall is improving. Her white blood cell count down trended even on the steroids which is good. Her blood pressure was mildly elevated today so we increased her lisinopril to 40 mg. As needed hydralazine was also ordered just in case. Otherwise she is been afebrile and her vital signs are better. Satting well on nasal cannula. Objective - Review of Systems Generalized/Overall Review: Reports: Weakness. Denies: Chills, Fever EENTM: Reports: No Symptoms Reported Respiratory: Reports: Cough, Shortness of Breath Cardiac: Reports: No Symptoms Reported Abdominal: Denies: Nausea, Vomiting Genitourinary Symptoms: Reports: No Symptoms Reported Musculoskeletal Complaints: Reports: No Symptoms Reported Neurological: Reports: No Symptoms Reported Skin: Reports: No Symptoms Reported Endocrine: Reports: No Symptoms Reported - Vitals Vitals: Last Vital Signs Temp 36.4 C 07/07/20 16:46 Pulse 96 07/07/20 17:59 Resp 18 07/07/20 17:59 BP 152/73 H 07/07/20 16:46 Pulse Ox 96 07/07/20 17:59 - Abnormal Lab Findings Abnormal Lab Findings: Abnormal Lab Results 07/06/20 07/07/20 07/07/20 Range/Units 18:48 04:15 10:40 WBC 13.9 H D (4.0-10.5) K/mm3 RBC 2.91 L (4.2-5.4) M/mm3 Hgb 9.0 L (12.5-16.0) gm/dL Hct 29.5 L (37.0-47.0) % MCV 101.4 H (78-100) fl MCHC 30.5 L (32-36) g/dl Immature Gran # (Auto) 0.06 H (0.000-0.0310) K/mm3 Neutrophils % 92.6 H (42-75.0) % Lymphocytes % 4.8 L (20-51) % Neutrophils # 12.9 H (1.3-6.0) K/mm3 Lymphocytes # 0.67 L (1.5-3.5) k/mm3 pCO2 60.5 H 66.5 H (32.0-45.0) mmHg pO2 60.4 H 61.2 H (23.3-35.1) mmHg HCO3 37.2 H 38.6 H (22.0-29.0) mmol/L Total CO2 39.1 H 40.7 H (22.0-26.0) mmol/L Base Excess 10.7 H 11.5 H (-2.0-3.0) mmol/L VBG O2 Saturation 90.6 L 90.2 L (94.0-98.0) % Carbon Dioxide (24-32.6) mmol/L Anion Gap (6.8-13.8) mmol/L BUN (3-23) mg/dL Est GFR (Non-Af Amer) (60-130) mL/min BUN/Creatinine Ratio (9.0-21.6) Random Glucose (70-110) mg/dL 07/07/20 07/07/20 Range/Units 10:40 14:55 WBC (4.0-10.5) K/mm3 RBC (4.2-5.4) M/mm3 Hgb (12.5-16.0) gm/dL Hct (37.0-47.0) % MCV (78-100) fl MCHC (32-36) g/dl Immature Gran # (Auto) (0.000-0.0310) K/mm3 Neutrophils % (42-75.0) % Lymphocytes % (20-51) % Neutrophils # (1.3-6.0) K/mm3 Lymphocytes # (1.5-3.5) k/mm3 pCO2 63.2 H (32.0-45.0) mmHg pO2 62.9 H (23.3-35.1) mmHg HCO3 41.4 H (22.0-29.0) mmol/L Total CO2 43.3 H (22.0-26.0) mmol/L Base Excess 14.8 H (-2.0-3.0) mmol/L VBG O2 Saturation 92.0 L (94.0-98.0) % Carbon Dioxide 40.1 H (24-32.6) mmol/L Anion Gap 5.2 L (6.8-13.8) mmol/L BUN 46 H (3-23) mg/dL Est GFR (Non-Af Amer) 40 L (60-130) mL/min BUN/Creatinine Ratio 33.1 H (9.0-21.6) Random Glucose 143 H (70-110) mg/dL - Exam Constitutional: Present: Alert, Oriented x3, Cooperative, Elderly ENT Exam: Present: hard of hearing Neck: Present: non-tender, supple Respiratory: Present: no respiratory distress, decreased breath sounds - Bilateral bases, rhonchi - Diffuse bases bilaterally Cardiovascular/Chest: Present: normal peripheral pulses, regular rate, rhythm, no murmur Abdomen: Present: soft, nontender, nondistended Skin Exam: Present: normal color, warm/dry Neurologic: Present: alert, normal mood/affect, oriented x 3 Appearance: Present: appropriate appearance, appropriate insight Eye contact: Present: cooperative, good eye contact Thoughts: Present: normal thought pattern, normal mood /affect Assessment/Plan Plan Narrative: Patient improving from a respiratory standpoint though she does still has significant desaturation with activity. We will continue oxygen via nasal cannula as her CO2 started to downtrend today while off of BiPAP (initially climbed from 60-66, then started downtrend to 63). Baseline CO2 is in the low 50s. She was satting high on 3 L though and so orders were changed to keep it at 2 L which is her home setting and try to maintain sats between 91 to 94%. We will continue Levaquin IV daily. Continue Solu-Medrol IV 3 times daily as ordered. Vital signs much better after adjusting her blood pressure medication. SCDs to be worn while in bed. Will encourage ambulation as well as order physical therapy to help with her deconditioning. We will repeat blood gases tomorrow morning with CBC and BMP. She did have a mild drop in her GFR today so we will monitor this. She is deftly not fluid overloaded though and may need to hold her Lasix if her GFR continues to drop tomorrow. Patient and family were in agreement the treatment plan. Nurse will call questions or concerns. - Problems/Diagnosis (1) Acute hypercapnic respiratory failure Problem: Acute (2) Acute exacerbation of chronic obstructive pulmonary disease (COPD) Problem: Acute (3) Leukocytosis Problem: Acute (4) CHF Problem: Active (5) Hypertension Problem: Acute
[2020-07-08] MEDS: IPRATROPIUM BROMIDE 0.5 MG/2.5 ML VIAL.NEB IH SCH ×4 (00:02→18:04)
[2020-07-08] MEDS: METHYLPREDNISOLONE SOD SUCC/PF 125 MG/2 ML VIAL IV SCH ×3 (05:22→21:35)
[2020-07-08] MEDS: FORMOTEROL FUMARATE 20 MCG/2 ML VIAL IH SCH ×2 (06:02→18:05)
[2020-07-08] MEDS: LEVALBUTEROL HCL 1.25 MG/3 ML AMPUL IH SCH ×4 (06:02→18:05)
[2020-07-08 07:21] LABS: Hematocrit 31.9 % (37.0-47.0); Hemoglobin 9.7 gm/dL (12.5-16.0); Mean Cell Volume 101.6 fl (78-100); Mean Corpuscular Hemoglobin 30.9 pg (27-31); Mean Corpuscular Hgb Conc 30.4 g/dl (32-36); Mean Platelet Volume 8.9 fl (8-12.5); Neutrophil # 12.9 K/mm3 (1.3-6.0); Neutrophil % 91.7 % (42-75.0); Platelet Count 364 K/mm3 (150-450); Red Blood Count 3.14 M/mm3 (4.2-5.4); Red Cell Distribution Width 12.5 % (11.5-14.0); White Blood Count 14.1 K/mm3 (4.0-10.5)
[2020-07-08 07:26] LABS: Venous Blood Gas pH 7.4 (7.32-7.43)
[2020-07-08] MEDS: ROFLUMILAST 250 MCG TABLET PO SCH (09:56)
[2020-07-08] MEDS: CARVEDILOL 3.125 MG TABLET PO SCH ×2 (09:56→21:32)
[2020-07-08] MEDS: FUROSEMIDE 40 MG TABLET PO SCH (09:56)
[2020-07-08] MEDS: FOLIC ACID 1 MG TABLET PO SCH (09:56)
[2020-07-08] MEDS: LISINOPRIL 40 MG TABLET PO SCH (09:56)
[2020-07-08] MEDS: LEVOFLOXACIN 500 MG TABLET PO SCH (10:00)
--- NOTE | 2020-07-08 11:20 | PN ---
Subjective - Date and Time Seen Date: 07/08/20 Time: 11:10 Subjective Narrative: Patient is awake alert oriented x3. She says she has no appetite. She says she is breathing better but still wheezy. The patient had a venous draw for her blood gases which showed her oxygen saturation to be in the 56 however bedside she was in the 96%. Her PCO2 was 73.6 was however her pH was 7.4. She was clinically stable. Objective - Review of Systems Generalized/Overall Review: Denies: Chills, Fever EENTM: Denies: Blurred Vision Respiratory: Reports: Shortness of Breath - Improved from yesterday, Wheezing. Denies: Cough Cardiac: Denies: Chest Pain, Edema, Palpitations Abdominal: Denies: Nausea, Vomiting, Abdominal Pain Genitourinary Symptoms: Denies: Urgency, Frequency Musculoskeletal Complaints: Denies: Joint Pain, Back Pain Neurological: Denies: Headache Skin: Denies: Lesions, Rash, Change in Color Endocrine: Denies: Increased Thirst - Vitals Vitals: Last Vital Signs Temp 36.7 C 07/08/20 10:00 Pulse 76 07/08/20 10:35 Resp 18 07/08/20 10:35 BP 148/74 07/08/20 10:00 Pulse Ox 95 07/08/20 10:25 - Abnormal Lab Findings Abnormal Lab Findings: Abnormal Lab Results 07/07/20 07/08/20 07/08/20 Range/Units 14:55 07:16 07:16 WBC 14.1 H (4.0-10.5) K/mm3 RBC 3.14 L (4.2-5.4) M/mm3 Hgb 9.7 L (12.5-16.0) gm/dL Hct 31.9 L (37.0-47.0) % MCV 101.6 H (78-100) fl MCHC 30.4 L (32-36) g/dl Immature Gran % (Auto) 0.70 H (0.001-0.429) % Immature Gran # (Auto) 0.10 H (0.000-0.0310) K/mm3 Neutrophils % 91.7 H (42-75.0) % Lymphocytes % 5.4 L (20-51) % Neutrophils # 12.9 H (1.3-6.0) K/mm3 Lymphocytes # 0.76 L (1.5-3.5) k/mm3 pCO2 63.2 H 73.7 H* (32.0-45.0) mmHg pO2 62.9 H (23.3-35.1) mmHg HCO3 41.4 H 45.0 H (22.0-29.0) mmol/L Total CO2 43.3 H 47.3 H (22.0-26.0) mmol/L Base Excess 14.8 H 17.2 H (-2.0-3.0) mmol/L VBG O2 Saturation 92.0 L 59.2 L (94.0-98.0) % - Exam Constitutional: Present: Alert, Oriented x3, Elderly ENT Exam: Present: hard of hearing Neck: Present: supple. Absent: lymphadenopathy (R), lymphadenopathy (L) Respiratory: Present: decreased breath sounds, wheezing, No rales Cardiovascular/Chest: Present: regular rate, rhythm, no JVD, no murmur Abdomen: Present: Normal bowel sounds, soft, nontender, nondistended Extremity: Present: no calf tenderness, lower extremity edema Assessment/Plan Plan Narrative: Alison is a 69-year-old white female who was admitted for acute respiratory failure combined type secondary to acute COPD exacerbation. Clinically patient is doing much better. Her white blood cell count is down to 14, she remains anemic at 9.7, her blood gases are dizziness with a normal pH. We will continue with the patient's current medications and present management. We will try her on incentive spirometry as well. Her slight bump of her WBC could be due to her steroid. We will add anemia work-up for tomorrow's blood work. - Problems/Diagnosis (1) Acute respiratory failure Problem: Acute Qualifiers: Respiratory failure complication: hypoxia and hypercapnia Qualified Code(s): J96.01 - Acute respiratory failure with hypoxia; J96.02 - Acute respiratory failure with hypercapnia (2) Acute exacerbation of chronic obstructive pulmonary disease (COPD) Problem: Acute (3) Chronic renal failure, stage 3 (moderate) Problem: Chronic Qualifiers: Chronic kidney disease stage 3 subtype: stage 3b (GFR 30-44) Qualified Code(s): N18.32 - Chronic kidney disease, stage 3b (4) Hypertension Problem: Acute (5) Leukocytosis Problem: Acute (6) Anemia Problem: Chronic Qualifiers: Anemia type: unspecified type Qualified Code(s): D64.9 - Anemia, unspecified
[2020-07-09] MEDS: IPRATROPIUM BROMIDE 0.5 MG/2.5 ML VIAL.NEB IH SCH ×4 (00:01→18:04)
[2020-07-09] MEDS: METHYLPREDNISOLONE SOD SUCC/PF 125 MG/2 ML VIAL IV SCH (05:29)
[2020-07-09] MEDS: FORMOTEROL FUMARATE 20 MCG/2 ML VIAL IH SCH ×2 (06:01→18:03)
[2020-07-09] MEDS: LEVALBUTEROL HCL 1.25 MG/3 ML AMPUL IH SCH ×5 (06:01→18:03)
[2020-07-09 06:49] LABS: Hematocrit 30.8 % (37.0-47.0); Hemoglobin 9.5 gm/dL (12.5-16.0); Mean Corpuscular Hemoglobin 31.1 pg (27-31); Mean Corpuscular Hgb Conc 30.8 g/dl (32-36); Mean Platelet Volume 9.2 fl (8-12.5); Neutrophil # 12.3 K/mm3 (1.3-6.0); Neutrophil % 90.4 % (42-75.0); Platelet Count 364 K/mm3 (150-450); Red Blood Count 3.05 M/mm3 (4.2-5.4); Red Cell Distribution Width 12.6 % (11.5-14.0); White Blood Count 13.6 K/mm3 (4.0-10.5)
[2020-07-09 07:17] LABS: Iron 70 mcg/dL (35-120); Transferrin Sat. (% Sat.) 28 % (15-55)
[2020-07-09 07:31] LABS: BUN/Creatinine Ratio 32.7 (9.0-21.6); Blood Urea Nitrogen 71 mg/dL (3-23); Estimated Creat Clear 18.5; Glucose * 143 mg/dL (70-110)
[2020-07-09 07:32] LABS: Anion Gap 4.1 mmol/L (6.8-13.8); Calcium * 10.2 mg/dL (7.9-10.9); Carbon Dioxide 40.2 mmol/L (24-32.6); Chloride 99 mmol/L (97-106); Ferritin 184 ng/mL (8-252); Potassium 4.3 mmol/L (3.4-4.6); Sodium 139 mmol/L (132-142)
--- NOTE | 2020-07-09 09:07 | PN ---
Subjective - Date and Time Seen Date: 07/09/20 Time: 08:56 Subjective Narrative: Awake alert oriented x3. A febrile. Patient today is not audibly wheezing. She is very hard of hearing as she said the battery of her hearing aid is down. She does wear home oxygen at 2 to 3 L. WBC is 13 and Cr is up to 2.17. Objective - Review of Systems Generalized/Overall Review: Reports: Fatigue. Denies: Chills, Fever EENTM: Denies: Blurred Vision, Other - Hearing difficulty Respiratory: Reports: Shortness of Breath, Wheezing. Denies: Cough, Orthopnea Cardiac: Denies: Chest Pain, Edema, Palpitations Abdominal: Denies: Nausea, Vomiting, Abdominal Pain Genitourinary Symptoms: Denies: Urgency, Frequency Musculoskeletal Complaints: Denies: Joint Pain, Back Pain Neurological: Denies: Headache Skin: Denies: Lesions, Rash Endocrine: Denies: Intolerance to Cold, Intolerance to Heat Misc: All systems neg except as marked - Vitals Vitals: Last Vital Signs Temp 36.5 C 07/09/20 06:00 Pulse 75 07/09/20 06:11 Resp 18 07/09/20 06:11 BP 142/75 07/09/20 06:00 Pulse Ox 90 L 07/09/20 06:01 - Abnormal Lab Findings Abnormal Lab Findings: Abnormal Lab Results 07/09/20 07/09/20 07/09/20 Range/Units 06:37 06:37 06:37 WBC 13.6 H (4.0-10.5) K/mm3 RBC 3.05 L (4.2-5.4) M/mm3 Hgb 9.5 L (12.5-16.0) gm/dL Hct 30.8 L (37.0-47.0) % MCV 101.0 H (78-100) fl MCH 31.1 H (27-31) pg MCHC 30.8 L (32-36) g/dl Immature Gran % (Auto) 0.70 H (0.001-0.429) % Immature Gran # (Auto) 0.10 H (0.000-0.0310) K/mm3 Neutrophils % 90.4 H (42-75.0) % Lymphocytes % 6.3 L (20-51) % Neutrophils # 12.3 H (1.3-6.0) K/mm3 Lymphocytes # 0.86 L (1.5-3.5) k/mm3 Carbon Dioxide 40.2 H (24-32.6) mmol/L Anion Gap 4.1 L (6.8-13.8) mmol/L BUN 71 H D (3-23) mg/dL Creatinine 2.17 H D (0.4-1.4) mg/dL Est GFR (Non-Af Amer) 24 L D (60-130) mL/min BUN/Creatinine Ratio 32.7 H (9.0-21.6) Random Glucose 143 H (70-110) mg/dL TIBC 253 L (260-445) mcg/dL Vitamin B12 1830 H (193-986) pg/mL - Exam Constitutional: Present: Alert, Oriented x3, Cooperative ENT Exam: Present: hard of hearing Neck: Present: supple. Absent: lymphadenopathy (R), lymphadenopathy (L) Respiratory: Present: decreased breath sounds, wheezing, No rales Cardiovascular/Chest: Present: regular rate, rhythm, no JVD, no murmur Abdomen: Present: Normal bowel sounds, soft, nontender, nondistended Extremity: Present: no calf tenderness. Absent: lower extremity edema Assessment/Plan Plan Narrative: Alison continues to use 2 L of nasal cannula saturation in the 90% and above. She is less wheezy than yesterday. She continues to have have Xopenex and ipratropium breathing treatments on top of her inhalers. She is on IV Solu-Me drol and will decrease it. We will continue current medications and present management. - Problems/Diagnosis (1) Acute kidney injury Problem: Acute Narrative: ARF on CRF- likely prerenal vs renal. will do trial of IVF. will hold Lisinopril. if no improvement , consider stopping levaquin ( renal- interstitial nephritis) (2) Acute respiratory failure Problem: Acute Qualifiers: Respiratory failure complication: hypoxia and hypercapnia Qualified Code(s): J96.01 - Acute respiratory failure with hypoxia; J96.02 - Acute respiratory failure with hypercapnia (3) Acute exacerbation of chronic obstructive pulmonary disease (COPD) Problem: Acute (4) Chronic renal failure, stage 3 (moderate) Problem: Chronic Qualifiers: Chronic kidney disease stage 3 subtype: stage 3b (GFR 30-44) Qualified Code(s): N18.32 - Chronic kidney disease, stage 3b (5) Hypertension Problem: Acute (6) Leukocytosis Problem: Acute (7) Anemia Problem: Chronic Qualifiers: Anemia type: unspecified type Qualified Code(s): D64.9 - Anemia, unspecified
[2020-07-09] MEDS: FOLIC ACID 1 MG TABLET PO SCH (09:56)
[2020-07-09] MEDS: ROFLUMILAST 250 MCG TABLET PO SCH (09:57)
[2020-07-09] MEDS: CARVEDILOL 3.125 MG TABLET PO SCH ×2 (09:57→20:52)
[2020-07-09] MEDS: FUROSEMIDE 40 MG TABLET PO SCH (09:57)
[2020-07-09] MEDS ORDERED: NORMAL SALINE 1,000 ML IV PRN (09:57)
[2020-07-09] MEDS: LISINOPRIL 40 MG TABLET PO SCH (09:57)
[2020-07-09] MEDS: METHYLPREDNISOLONE SOD SUCC/PF 40 MG/ML VIAL IV SCH ×3 (09:58→20:53)
[2020-07-09] MEDS: LEVOFLOXACIN 500 MG TABLET PO SCH (10:00)
[2020-07-09] MEDS: NORMAL SALINE 1,000 ML IV PRN (19:10)
[2020-07-10] MEDS: IPRATROPIUM BROMIDE 0.5 MG/2.5 ML VIAL.NEB IH SCH ×4 (00:12→18:03)
[2020-07-10] MEDS: METHYLPREDNISOLONE SOD SUCC/PF 40 MG/ML VIAL IV SCH ×4 (02:24→21:03)
[2020-07-10] MEDS: LEVALBUTEROL HCL 1.25 MG/3 ML AMPUL IH SCH ×4 (06:01→18:03)
[2020-07-10] MEDS: FORMOTEROL FUMARATE 20 MCG/2 ML VIAL IH SCH ×2 (06:01→18:03)
[2020-07-10 07:04] LABS: Hematocrit 29.8 % (37.0-47.0); Hemoglobin 9.1 gm/dL (12.5-16.0); Mean Corpuscular Hemoglobin 30.8 pg (27-31); Mean Corpuscular Hgb Conc 30.5 g/dl (32-36); Mean Platelet Volume 9.5 fl (8-12.5); Neutrophil # 11.3 K/mm3 (1.3-6.0); Neutrophil % 88.1 % (42-75.0); Platelet Count 374 K/mm3 (150-450); Red Blood Count 2.95 M/mm3 (4.2-5.4); Red Cell Distribution Width 12.6 % (11.5-14.0); White Blood Count 12.8 K/mm3 (4.0-10.5)
[2020-07-10 07:08] LABS: Anion Gap 5.7 mmol/L (6.8-13.8); BUN/Creatinine Ratio 35.4 (9.0-21.6); Calcium * 9.3 mg/dL (7.9-10.9); Carbon Dioxide 37.8 mmol/L (24-32.6); Estimated Creat Clear 24.4; Potassium 4.5 mmol/L (3.4-4.6)
[2020-07-10] MEDS: FOLIC ACID 1 MG TABLET PO SCH (08:31)
[2020-07-10] MEDS: CARVEDILOL 3.125 MG TABLET PO SCH ×2 (08:32→21:03)
[2020-07-10] MEDS: ROFLUMILAST 250 MCG TABLET PO SCH (08:32)
[2020-07-10] MEDS: FUROSEMIDE 40 MG TABLET PO SCH (08:33)
[2020-07-10] MEDS: LEVOFLOXACIN 500 MG TABLET PO SCH (11:43)
--- NOTE | 2020-07-10 13:03 | PN ---
Subjective - Date and Time Seen Date: 07/10/20 Time: 13:02 Subjective Narrative: Patient is comfortable today, just got a shower. States she feels much better breathing easier. Vital signs been much better. Her kidney functions improving, creatinine down to 1.6 when it was up to 2.1. White blood cell count continues to trend down. Cough is improving. As always her labs are good tomorrow she likely will be discharged home. No acute events overnight and she has no questions or concerns today. Objective - Review of Systems Generalized/Overall Review: Denies: Weakness, Chills, Fever EENTM: Reports: No Symptoms Reported Respiratory: Reports: Cough - Improving, Shortness of Breath - Minimal. Denies: Wheezing Cardiac: Reports: No Symptoms Reported Abdominal: Reports: No Symptoms Reported Genitourinary Symptoms: Reports: No Symptoms Reported Musculoskeletal Complaints: Reports: No Symptoms Reported Neurological: Reports: No Symptoms Reported - Vitals Vitals: Last Vital Signs Temp 36.6 C 07/10/20 10:32 Pulse 80 07/10/20 10:32 Resp 20 07/10/20 10:32 BP 165/71 H 07/10/20 10:32 Pulse Ox 91 L 07/10/20 10:32 - Abnormal Lab Findings Abnormal Lab Findings: Abnormal Lab Results 07/10/20 07/10/20 Range/Units 06:21 06:21 WBC 12.8 H (4.0-10.5) K/mm3 RBC 2.95 L (4.2-5.4) M/mm3 Hgb 9.1 L (12.5-16.0) gm/dL Hct 29.8 L (37.0-47.0) % MCV 101.0 H (78-100) fl MCHC 30.5 L (32-36) g/dl Immature Gran % (Auto) 2.70 H (0.001-0.429) % Immature Gran # (Auto) 0.35 H (0.000-0.0310) K/mm3 Neutrophils % 88.1 H (42-75.0) % Lymphocytes % 6.7 L (20-51) % Neutrophils # 11.3 H (1.3-6.0) K/mm3 Lymphocytes # 0.85 L (1.5-3.5) k/mm3 Carbon Dioxide 37.8 H (24-32.6) mmol/L Anion Gap 5.7 L (6.8-13.8) mmol/L BUN 58 H (3-23) mg/dL Creatinine 1.64 H D (0.4-1.4) mg/dL Est GFR (Non-Af Amer) 33 L D (60-130) mL/min BUN/Creatinine Ratio 35.4 H (9.0-21.6) Random Glucose 142 H (70-110) mg/dL - Exam Constitutional: Present: Alert, Oriented x3, Cooperative, Elderly ENT Exam: Present: hard of hearing Respiratory: Present: no respiratory distress, wheezing - Minimal, bilateral lower lobes Cardiovascular/Chest: Present: regular rate, rhythm, no murmur Abdomen: Present: soft, nontender, nondistended Skin Exam: Present: normal color Appearance: Present: appropriate appearance, appropriate insight, neat Eye contact: Present: cooperative, good eye contact Thoughts: Present: normal thought pattern, normal mood /affect Assessment/Plan Plan Narrative: Ms. Purdy is doing much better today than she has since she is entered. We will continue current treatment with antibiotics and IV steroids from her day. As long as her kidney function continues to improve and she likely will be discharged home tomorrow morning. Repeat BMP in the morning. The rest of her electrolytes okay and her white count is still trending down. We will continue IV fluids at 75 mL's per hour for the time being but will stop it later this evening. Continue breathing treatments as ordered. Continue oxygen per home requirements at 2 L. Maintain sats above 90%. Overall she looks good and should be ready to be discharged home tomorrow with follow-up with her PCP. Patient was in agreement with this, nurses to call questions or concerns. - Problems/Diagnosis (1) Acute hypercapnic respiratory failure Problem: Acute (2) Acute exacerbation of chronic obstructive pulmonary disease (COPD) Problem: Acute (3) Leukocytosis Problem: Acute (4) CHF Problem: Active (5) Hypertension Problem: Acute (6) Acute kidney injury Problem: Acute
[2020-07-10] MEDS: NORMAL SALINE 1,000 ML IV PRN (18:30)
[2020-07-11] MEDS: IPRATROPIUM BROMIDE 0.5 MG/2.5 ML VIAL.NEB IH SCH ×2 (00:05→06:10)
[2020-07-11] MEDS: METHYLPREDNISOLONE SOD SUCC/PF 40 MG/ML VIAL IV SCH ×2 (02:48→08:39)
[2020-07-11] MEDS: FORMOTEROL FUMARATE 20 MCG/2 ML VIAL IH SCH (06:14)
[2020-07-11] MEDS: LEVALBUTEROL HCL 1.25 MG/3 ML AMPUL IH SCH ×2 (06:14→10:21)
[2020-07-11 06:49] LABS: BUN/Creatinine Ratio 31.9 (9.0-21.6); Calcium * 9.5 mg/dL (7.9-10.9); Carbon Dioxide 38.1 mmol/L (24-32.6); Estimated Creat Clear 24.1; Potassium 4.1 mmol/L (3.4-4.6)
[2020-07-11] MEDS: ROFLUMILAST 250 MCG TABLET PO SCH (08:38)
[2020-07-11] MEDS: FOLIC ACID 1 MG TABLET PO SCH (08:39)
[2020-07-11] MEDS: FUROSEMIDE 40 MG TABLET PO SCH (08:39)
[2020-07-11] MEDS: CARVEDILOL 3.125 MG TABLET PO SCH (08:39)
[2020-07-11] MEDS: LEVOFLOXACIN 500 MG TABLET PO SCH (10:15)
--- NOTE | 2020-07-11 12:43 | DS ---
(1) Acute hypercapnic respiratory failure Problem: Acute (2) Acute exacerbation of chronic obstructive pulmonary disease (COPD) Problem: Acute (3) Leukocytosis Problem: Acute (4) CHF Problem: Active (5) Hypertension Problem: Acute (6) Acute kidney injury Problem: Acute Date of Discharge:: 07/11/20 Hospital Course: 69-year-old female with history of hypertension, CHF, and COPD who was admitted to the hospital due to acute hypercapnic respiratory failure secondary to COPD exacerbation. Patient was started on IV antibiotics and IV steroids and improved significantly from a day-to-day basis. Patient also initially was on BiPAP to bring down her CO2 for roughly 12 hours and then she was transitioned to her home oxygen requirements. her home oxygen requirements while here were set at 2 L to maintain her sats but she did well and her clinical picture improved significantly. Initial white count was 18.3 upon admission but trended down 12.8 upon discharge even while on steroids. Initial blood gas had her CO2 at 97 but this also trended downward to 59.7 which is close to her baseline. Her CHEM panel initially was unremarkable though she had a mildly elevated BNP at 974 (the lowest it has been since she is been here) but otherwise was unremarkable. Her kidney creatinine upon admission was 1.17 with a GFR of 49 which did downtrend to a creatinine of 2.17 with a GFR of 24. She was kept an additional 2 days for gentle IV fluid due to her CHF and her kidney function im proved to 1.66 with a GFR of 33. She was given the option to stay 1 more day for continued fluid administration or to go home and drink water. Her son states that she drinks minimal amounts of fluid during the day and is not uncommon for her to spend 2 days drinking 32 ounces of water. Explained to her that this is why her kidneys are the with ER and that it would be best if she went home to get out of the hospital where she could sleep and recover more comfortably from her house. Explained to her that she need to drink about 60 to 70 ounces of water a day in order to improve and maintain her kidney function which she stated understanding to. Her son is going to watch her closely make sure she does not do this. She will return to the clinic in 3 days for repeat BMP. Will notify with results of the return to me by phone. We will set an appointment to follow-up with her PCP in 1 week. Also send her home on an additional 6 days of prednisone to be weaned since she has been on fairly large amounts of Solu-Medrol IV while here. She also will need an additional 2 days of oral Levaquin at 500 mg every 24 hours. Otherwise no changes to her medication. Advised her to take her spirometer home with her and to use this daily even after she is recovered as this will help maintain her lung capacity and hopefully limit exacerbations in the future. Otherwise her vital signs have been stable, mildly elevated blood pressure but her lisinopril was held due to her kidney function and this will be resumed when she goes home. 1 hour critical care time spent with patient during her exam, answering questions with the family, writing her discharge summary and setting her medications and as well as establishing her follow-up appointments. She also had a BMP ordered which she will get in 3 days. Procedures Performed: none Results and Findings: Lab Pending Results 07/06/20 08:56: WBC 18.3 H, RBC 3.16 L, Hgb 9.8 L, Hct 33.5 L, MCV 106.0 H, MCH 31.0, MCHC 29.3 L, RDW 12.4, Plt Count 392, MPV 9.2, Neutrophils % (Manual) 95 H, Lymphocytes % (Manual) 2 L, Monocytes % (Manual) 3, Neutrophils # (Manual) 17.4 H, Lymphocytes # (Manual) 0.4 L, Monocytes # (Manual) 0.5, Platelet Estimate Normal, Basophilic Stippling Trace, Macrocytosis 1+ 07/06/20 08:56: Sodium 142, Plasma Sodium 142, Potassium 4.7 H, Chloride 101, Carbon Dioxide 42.6 H, Anion Gap 3.1 L, BUN 33 H, Creatinine 1.17, Est GFR (Non- Af Amer) 49 L, BUN/Creatinine Ratio 28.2 H, Random Glucose 129 H, Calcium 9.9, Calcium Adj for Albumin 10.1, Total Bilirubin 0.3, AST 15, ALT 19, Alkaline Phosphatase 83, Troponin I Less than 0.017, B-Natriuretic Peptide 974 H, Total Protein 8.4 H, Albumin 3.3 L 07/06/20 09:05: pCO2 97.0 H*, pO2 166.1 H, HCO3 44.6 H, Total CO2 47.5 H, Base Excess 14.7 H, ABG pH 7.28 L, ABG O2 Sat (Measured) 98.8 H 07/06/20 09:25: Urine Color Yellow, Urine Appearance Clear, Urine pH 5.5, Ur Specific Brilliant 1.025, Urine Protein 15 H, Urine Glucose (UA) Negative, Urine Ketones Negative, Urine Blood Negative, Urine Nitrate Negative, Urine Bilirubin Negative, Urine Urobilinogen Normal, Ur Leukocyte Esterase Negative, Urine RBC 0-5, Urine WBC 0-5, Ur Epithelial Cells 0-5, Urine Bacteria Trace, Hyaline Casts 0-5 H, Urine Culture Comments No culture indicated 07/06/20 09:28: SARS-CoV-2 (PCR) Not detected 07/06/20 10:22: pCO2 72.5 H*, pO2 73.3 L, HCO3 40.5 H, Total CO2 42.7 H, Base Excess 12.8 H, ABG pH 7.37, ABG O2 Sat (Measured) 93.6 L 07/06/20 18:48: pCO2 60.5 H, pO2 60.4 H, HCO3 37.2 H, Total CO2 39.1 H, Base Excess 10.7 H, ABG pH 7.41, VBG O2 Saturation 90.6 L 07/07/20 04:15: pCO2 66.5 H, pO2 61.2 H, HCO3 38.6 H, Total CO2 40.7 H, Base Excess 11.5 H, ABG pH 7.38, VBG O2 Saturation 90.2 L 07/07/20 10:40: WBC 13.9 H D, RBC 2.91 L, Hgb 9.0 L, Hct 29.5 L, MCV 101.4 H, MCH 30.9, MCHC 30.5 L, RDW 12.4, Plt Count 326, MPV 8.9, Immature Gran % (Auto) 0.40, Immature Gran # (Auto) 0.06 H, Neutrophils % 92.6 H, Lymphocytes % 4.8 L, Monocytes % 2.1, Eosinophils % 0.0, Basophils % 0.1, Nucleated RBC % 0.0, Neutrophils # 12.9 H, Lymphocytes # 0.67 L, Monocytes # 0.3, Eosinophils # 0.0, Absolute Basophils 0.0 07/07/20 10:40: Sodium 141, Plasma Sodium 142, Potassium 4.3, Chloride 100, Carbon Dioxide 40.1 H, Anion Gap 5.2 L, BUN 46 H, Creatinine 1.39, Est GFR (Non- Af Amer) 40 L, BUN/Creatinine Ratio 33.1 H, Random Glucose 143 H, Calcium 9.9 07/07/20 14:55: pCO2 63.2 H, pO2 62.9 H, HCO3 41.4 H, Total CO2 43.3 H, Base Excess 14.8 H, ABG pH 7.43, VBG O2 Saturation 92.0 L 07/08/20 07:16: WBC 14.1 H, RBC 3.14 L, Hgb 9.7 L, Hct 31.9 L, MCV 101.6 H, MCH 30.9, MCHC 30.4 L, RDW 12.5, Plt Count 364, MPV 8.9, Immature Gran % (Auto) 0.70 H, Immature Gran # (Auto) 0.10 H, Neutrophils % 91.7 H, Lymphocytes % 5.4 L, Monocytes % 2.1, Eosinophils % 0.0, Basophils % 0.1, Nucleated RBC % 0.0, Neutrophils # 12.9 H, Lymphocytes # 0.76 L, Monocytes # 0.3, Eosinophils # 0.0, Absolute Basophils 0.0 07/08/20 07:16: pCO2 73.7 H*, pO2 32.4, HCO3 45.0 H, Total CO2 47.3 H, Base Excess 17.2 H, ABG pH 7.40, VBG O2 Saturation 59.2 L 07/09/20 06:37: WBC 13.6 H, RBC 3.05 L, Hgb 9.5 L, Hct 30.8 L, MCV 101.0 H, MCH 31.1 H, MCHC 30.8 L, RDW 12.6, Plt Count 364, MPV 9.2, Immature Gran % (Auto) 0.70 H, Immature Gran # (Auto) 0.10 H, Neutrophils % 90.4 H, Lymphocytes % 6.3 L, Monocytes % 2.5, Eosinophils % 0.0, Basophils % 0.1, Nucleated RBC % 0.0, Neutrophils # 12.3 H, Lymphocytes # 0.86 L, Monocytes # 0.3, Eosinophils # 0.0, Absolute Basophils 0.0 07/09/20 06:37: Sodium 139, Plasma Sodium 140, Potassium 4.3, Chloride 99, Carbon Dioxide 40.2 H, Anion Gap 4.1 L, BUN 71 H D, Creatinine 2.17 H D, Est GFR (Non-Af Amer) 24 L D, BUN/Creatinine Ratio 32.7 H, Random Glucose 143 H, Calcium 10.2, Ferritin 184, Vitamin B12 1830 H, Folate Greater than 20.0 07/09/20 06:37: Iron 70, TIBC 253 L, Transferrin % Sat 28 07/09/20 10:15: pCO2 59.7 H, pO2 65.0 L, HCO3 39.1 H, Total CO2 40.9 H, Base Excess 12.9 H, ABG pH 7.43, ABG O2 Sat (Measured) 92.8 L 07/10/20 06:21: WBC 12.8 H, RBC 2.95 L, Hgb 9.1 L, Hct 29.8 L, MCV 101.0 H, MCH 30.8, MCHC 30.5 L, RDW 12.6, Plt Count 374, MPV 9.5, Immature Gran % (Auto) 2.70 H, Immature Gran # (Auto) 0.35 H, Neutrophils % 88.1 H, Lymphocytes % 6.7 L, Monocytes % 2.3, Eosinophils % 0.0, Basophils % 0.2, Nucleated RBC % 0.0, Neutrophils # 11.3 H, Lymphocytes # 0.85 L, Monocytes # 0.3, Eosinophils # 0.0, Absolute Basophils 0.0 07/10/20 06:21: Sodium 141, Plasma Sodium 142, Potassium 4.5, Chloride 102, Carbon Dioxide 37.8 H, Anion Gap 5.7 L, BUN 58 H, Creatinine 1.64 H D, Est GFR (Non-Af Amer) 33 L D, BUN/Creatinine Ratio 35.4 H, Random Glucose 142 H, Calcium 9.3 07/11/20 06:32: Sodium 140, Plasma Sodium 140, Potassium 4.1, Chloride 103, Carbon Dioxide 38.1 H, Anion Gap 3.0 L, BUN 53 H, Creatinine 1.66 H, Est GFR (Non-Af Amer) 33 L, BUN/Creatinine Ratio 31.9 H, Random Glucose 113 H, Calcium 9.5 Discharge Location: Home Disposition: Home self-care Condition: Fair Discharge Activity: Activity as tolerated Discharge Diet: Low salt, Other - 60 ounces of water a day Referrals: Isael Vallejo DO [Primary Care Provider] - One Week Prescriptions (Any new or edited meds): Levofloxacin [Levaquin] 500 mg PO DAILY@1100 #2 tab Transmission Status: Pending to [facility] predniSONE [Prednisone] 20 mg PO DAILY #15 tab Transmission Status: Pending to [facility] Complete Home Medications List: Complete Home Medication List: arformoterol 15 mcg/2 mL solution for nebulization 15 mcg IH BID 90 Days #360 ml 05/16/20 carvedilol 3.125 mg tablet 3.125 mg PO BID #180 tab 05/16/20 furosemide 40 mg tablet 40 mg PO DAILY #90 tab 05/16/20 ipratropium bromide 0.02 % solution for inhalation 2.5 ml IH Q6H #150 ml 05/16/20 levalbuterol HCl 1.25 mg/0.5 mL solution for nebulization 1.25 mg IH QID #360 ea 05/16/20 lisinopril 20 mg tablet 20 mg PO DAILY #90 tab 05/16/20 roflumilast 500 mcg tablet 500 mcg PO DAILY #90 tab 05/16/20 folic acid 1 mg tablet 1 mg PO DAILY #90 tab 05/26/20 mecobalamin (vitamin B12) 1,000 mcg disintegrating tablet,sublingual 1,000 mcg SL DAILY #90 tab 05/26/20 Levofloxacin [Levaquin] 500 mg PO DAILY@1100 #2 tab 07/11/20 predniSONE [Prednisone] 20 mg PO DAILY #15 tab 07/11/20 Forms: Patient Portal Registration
[2020-07-11 15:00] VITALS: BP 140/88
== END 2020-07-11 13:32 | disposition home or self-care (01) | DRG 189 ==
LOC: MS 08:37 → ER 08:37 → MS 11:35
PROVIDERS: ADMIT Family Medicine; ATTEND Family Medicine
DX: J96.02 Acute respiratory failure with hypercapnia; J96.01 Acute respiratory failure with hypoxia; I13.0 Hypertensive heart and chronic kidney disease with heart failure and stage 1 through stage 4 chronic kidney disease, or unspecified chronic kidney disease; N17.9 Acute kidney failure, unspecified; D64.9 Anemia, unspecified; I50.9 Heart failure, unspecified; N18.32 Chronic kidney disease, stage 3b; D72.829 Elevated white blood cell count, unspecified; J44.1 Chronic obstructive pulmonary disease with (acute) exacerbation